=== PATIENT | female | born 1990 | race Caucasian/White ===

== ENCOUNTER 2017-10-09 14:32 | Emergency (ER) | payer OTHER ==
[~2017-10-09] VITALS: Ht 167.6 cm; Wt 86.2 kg
--- NOTE | ~2017-10-09 | EKG ---
[address] [address] ELECTROCARDIOGRAM REPORT Name: FLORENCIA TOUSSAINT Room #: [facility]#: [id number] Admission: 10/09/17 Attend Phys: Discharge: 10/09/17 Date of : 89 Report #: [id number] THIS REPORT FOR: //name// [facility] ED Test Date: 2017-10-09 Test Time: 16:41:24 Pat Name: FLORENCIA TOUSSAINT Department: Room: Gender: [employer]: [place] : 1990 Requested By: Les Posada Order Number: [id number] MD: Js Logan Measurements Intervals [place] Rate: 82 P: 22 [place]: 172 QRS: -2 QRSD: 94 T: 22 QT: 375 QTc: 438 Interpretive Statements Sinus rhythm No significant abnormality Compared to ECG 03/18/2009 22:27:04 Sinus tachycardia no longer present Electronically Signed On 10-10-2017 8:42:28 [employer] by Js Logan [email or web address] <ELECTRONICALLY SIGNED> By: Js Logan MD, [facility] 10/10/17 [id number] Js Logan MD, FACC /EPI
[~2017-10-09 14:32] MED LIST: IBUPROFEN 600600 M1 PO
[2017-10-09 15:43] LABS: URINE BILIRUBIN NEGATIVE (Negative); URINE BLOOD TRACE (Negative); URINE COLOR YELLOW; URINE GLUCOSE-RANDOM* NEGATIVE (Negative); URINE KETONES NEGATIVE (Negative); URINE LEUKOCYTES-REFLEX NEGATIVE (Negative); URINE PROTEIN (DIPSTICK) NEGATIVE (Negative); URINE SPECIFIC GRAVITY <= 1.005 (1.005-1.035); URINE UROBILINOGEN 0.2 E.U./dl (0.2-1.0)
[2017-10-09 16:30] LABS: HEMATOCRIT 39.3 % (37.0-47.0); HEMOGLOBIN 13.2 gm/dL (12.0-15.0); MCH 30.6 pg (26.0-34.0); MCHC 33.7 g/dL (28.0-37.0); MCV 90.8 fL (80.0-100.0); RBC 4.33 mil/uL (4.20-5.00); RDW 14.1 % (10.5-14.5); WBC 9.3 thou/uL (4.0-11.0)
[2017-10-09 16:37] LABS: CALCIUM 9.7 mg/dL (8.5-10.1); CREATININE 0.8 mg/dL (0.6-1.0); POTASSIUM 4.2 mmol/L (3.5-5.1)
[2017-10-09] MEDS ORDERED: CLONIDINE0.1 PO (17:14)
[2017-10-09] MEDS ORDERED: NAPROSYN500 MG PO (17:14)
[2017-10-09 17:16] VITALS: BP 156/105
== END 2017-10-09 17:30 | disposition home or self-care (01) ==
LOC: ER 14:32
PROVIDERS: Emergency Medicine
DX: R03.0 Elevated blood-pressure reading, without diagnosis of hypertension (principal); M54.5 Low back pain; F90.9 Attention-deficit hyperactivity disorder, unspecified type; F17.210 Nicotine dependence, cigarettes, uncomplicated; Z86.14 Personal history of Methicillin resistant Staphylococcus aureus infection; Z88.5 Allergy status to narcotic agent; Z88.2 Allergy status to sulfonamides; Z88.6 Allergy status to analgesic agent; Z91.040 Latex allergy status

== ENCOUNTER → 2017-10-30 | Outpatient (CLI) | payer OTHER ==
[~2017-10-30] MED LIST changes: +CLONIDINE0.1 PO; +NAPROSYN500 MG PO
== END ==
LOC: ULTRA 14:18
DX: N92.6 Irregular menstruation, unspecified (principal)

== ENCOUNTER → 2017-11-14 | Outpatient (CLI) | payer OTHER | LOC: ULTRA 08:46 | DX: I10 Essential (primary) hypertension (principal) ==